=== PATIENT | male | born 1995 | race African-American/Black ===

== ENCOUNTER 2025-04-04 08:46 | Emergency (ER) | payer SELFPAY | END 2025-04-04 11:07 | disposition home or self-care (01) | LOC: CSHERS 08:46 | DX: S39.012A Strain of muscle, fascia and tendon of lower back, initial encounter (principal); X50.0XXA Overexertion from strenuous movement or load, initial encounter; Y93.89 Activity, other specified | CPT/HCPCS: 99283 ==